=== PATIENT | male | born 1975 | race Caucasian/White ===

== ENCOUNTER → 2020-12-09 15:10 | Outpatient (CLI) | payer BC, SELFPAY ==
--- NOTE | ~2020-12-09 | XR_ITS ---
XR shoulder LT min 2V DATE: 12/09/2020 15:36 INDICATION: Left shoulder injury, left shoulder and upper arm pain TECHNIQUE: 4 views COMPARISON: None FINDINGS: No fracture or dislocation, periosteal reaction or bone destruction. Normal alignment at th e acromioclavicular and glenohumeral joints. No abnormal soft tissue calcification. IMPRESSION: Negative Reviewed, dictated and finalized at location B. IMPRESSION: Negative
--- NOTE | ~2020-12-09 | XR_ITS ---
XR chest 2V DATE: 12/09/2020 15:28 INDICATION: Cough and congestion TECHNIQUE: 2 views COMPARISON: None FINDINGS: Normal heart size. No hilar or mediastinal enlargement. No pulmonary infiltrate or consolid ation, pleural effusion or pulmonary vascular congestion or pneumothorax. Included skeletal structur es are unremarkable. IMPRESSION: No active cardiopulmonary disease Reviewed, dictated and finalized at location B.
== END ==
PROVIDERS: Visit Provider Physician Assistant
DX: R05 Cough (principal); S49.91XA Unspecified injury of right shoulder and upper arm, initial encounter
CPT/HCPCS: 71046; 73030